=== PATIENT | male | born 1955 ===

== ENCOUNTER 2016-10-26 18:29 | Emergency (ER) | payer OTHER ==
[2016-10-26 18:49] VITALS: BP 179/87; PULSE 86; RESP 15; TEMP 98.4; O2SAT 97
--- NOTE | 2016-10-26 19:02 | C.PDOC ---
History Of Present Illness The patient, a 61 y/o male, presents to the ED for evaluation of a foreign body in right ear for 2 days. Patient notes there is a q-tip stuck in the area and presents to the ED for further evaluation. Patient denies pain and discharge from the area. Time Seen by Provider: 10/26/16 18:59 Chief Complaint (Nursing): ENT Problem History Per: Patient History/Exam Limitations: None Onset/Duration Of Symptoms: Days (2) Current Symptoms Are (Timing): Still Present Quality (Ear): denies: Pain W/Touch Past Medical History Reviewed: Historical Data, Nursing Documentation, Vital Signs Vital Signs: Last Vital Signs Temp 98.4 F 10/26/16 18:48 Pulse 86 10/26/16 18:48 Resp 15 10/26/16 18:48 BP 179/87 H 10/26/16 18:48 Pulse Ox 97 10/26/16 21:42 - Medical History PMH: No Chronic Diseases Surgical History: No Surg Hx Family History: States: Unknown Family Hx - Social History Hx Alcohol Use: No Hx Substance Use: No Review Of Systems Except As Marked, All Systems Reviewed And Found Negative. ENT: Positive for: Other (+FB (Q-tip) in right ear. no discharge ) Physical Exam - Physical Exam Appears: Non-toxic, No Acute Distress Skin: Normal Color, Warm, Dry Head: Atraumatic Eye(s): bilateral: Normal Inspection Ear(s): Left: Normal, Right: Other (+foreign body (q-tip) visualized in canal) Oral Mucosa: Moist Extremity: Normal ROM Neurological/Psych: Oriented x3, Normal Speech Gait: Steady ED Course And Treatment O2 Sat by Pulse Oximetry: 97 (on RA) Pulse Ox Interpretation: Normal Progress Note: Q-tip was removed successfully from right ear with alligator forceps, patient tolerated well (see procedure note). On reassessment, patient is resting comfortably, showing no signs of distress, and is stable for discharge. Patient is advised to follow up with PMD within 1-2 days for further evaluation. Reassessment Condition: Improved Disposition - Disposition Disposition: HOME/ ROUTINE Disposition Time: 19:00 Condition: STABLE Additional Instructions: Follow up with PMD as needed. Return to Ed if feel worse. Instructions: Ear Foreign Body (ED) - Clinical Impression Clinical Impression: Foreign body - PA / TESTING ANALYST / Resident Statement MD/DO has reviewed & agrees with the documentation as recorded. - Scribe Statement The provider has reviewed the documentation as recorded by the Scribe (Gifty Castaneda) All medical record entries made by the Scribe were at my direction and personally dictated by me. I have reviewed the chart and agree that the record accurately reflects my personal performance of the history, physical exam, medical decision making, and the department course for this patient. I have also personally directed, reviewed, and agree with the discharge instructions and disposition. Procedures - FB Removal Ear Right Foreign Body Location: Ear Canal Right Foreign Body Suspected: Other (Q-tip ) TM Intact Pre-Procedure: Yes Foreign Body Removed: Yes Foreign Body Removal Technique: Forceps (alligator ) TM Intact Post Procedure: Yes Patient Tolorated Procedure: Well, No Complications Complications: None
== END 2016-10-26 19:15 | disposition home or self-care (01) ==
LOC: C.ER 18:29
DX: T16.1XXA Foreign body in right ear, initial encounter (principal); X58.XXXA Exposure to other specified factors, initial encounter

== ENCOUNTER 2017-01-15 17:31 | Emergency (ER) | payer OTHER ==
[2017-01-15 17:38] VITALS: PULSE 95; RESP 16; TEMP 98.9; O2SAT 97
--- NOTE | 2017-01-15 18:02 | C.PDOC ---
History Of Present Illness 61 year old male presents to the ED for evaluation of his right ear. Patient states while getting ready for mu-ism this morning he used a Q-tip and some was stuck in his ear. Patient denies pain or other complaints at this time. Time Seen by Provider: 01/15/17 17:44 Chief Complaint (Nursing): ENT Problem History Per: Patient History/Exam Limitations: None Onset/Duration Of Symptoms: Hrs Current Symptoms Are (Timing): Still Present Quality (Ear): Foreign Body (Q-tip stuck in ear) Anticoagulant/Antiplatlet Use?: No Past Medical History Reviewed: Historical Data, Nursing Documentation, Vital Signs Vital Signs: Last Vital Signs Temp 98.9 F 01/15/17 17:35 Pulse 95 H 01/15/17 17:35 Resp 16 01/15/17 17:35 BP 152/90 H 01/15/17 18:03 Pulse Ox 97 01/15/17 18:26 - Medical History PMH: HTN Family History: States: Unknown Family Hx - Social History Hx Alcohol Use: No Hx Substance Use: No Review Of Systems Constitutional: Negative for: Fever, Chills ENT: Positive for: Other (Q-tip in the right ear ). Negative for: Ear Pain Cardiovascular: Negative for: Chest Pain, Palpitations Respiratory: Negative for: Cough, Shortness of Breath Physical Exam - Physical Exam Appears: Non-toxic, No Acute Distress Skin: Warm, Dry Head: Atraumatic Eye(s): bilateral: Normal Inspection, EOMI Ear(s): Left: Normal, Right: Other (Foreign body in the right ear. ) Nose: Normal Oral Mucosa: Moist Neck: Supple Chest: Symmetrical, No Deformity Respiratory: No Accessory Muscle Use Neurological/Psych: Oriented x3 ED Course And Treatment O2 Sat by Pulse Oximetry: 97 (room air ) Progress Note: Foreign body - cotton - was removed with forceps and ear canal was evaluated afterwards. No TM erythema, swelling, or pain to the ear canal. Disposition - Disposition Referrals: Eder Renee MD [Staff Provider] - Disposition: HOME/ ROUTINE Disposition Time: 18:00 Condition: STABLE Additional Instructions: Follow up with primary medical doctor in 1-3 days without fail for further evaluation. Return to the emergency department at any time if symptoms persist or worsen. Instructions: Ear Foreign Body (ED) - Clinical Impression Clinical Impression: Ear foreign body - Scribe Statement The provider has reviewed the documentation as recorded by the Scribe [place] All medical record entries made by the Scribe were at my direction and personally dictated by me. I have reviewed the chart and agree that the record accurately reflects my personal performance of the history, physical exam, medical decision making, and the department course for this patient. I have also personally directed, reviewed, and agree with the discharge instructions and disposition.
[2017-01-15 18:05] VITALS: BP 152/90
== END 2017-01-15 18:05 | disposition home or self-care (01) ==
LOC: C.ER 17:31
DX: T16.1XXA Foreign body in right ear, initial encounter (principal); X58.XXXA Exposure to other specified factors, initial encounter; Y92.009 Unspecified place in unspecified non-institutional (private) residence as the place of occurrence of the external cause

== ENCOUNTER 2017-07-07 16:35 | Emergency (ER) | payer OTHER ==
[2017-07-07 17:08] VITALS: TEMP 98; O2SAT 96
[2017-07-07] MEDS ORDERED: Naproxen 550 mg Tab PO STA (17:31)
[2017-07-07] MEDS ORDERED: Naproxen 550 mg Tab PO ONE (17:38)
--- NOTE | 2017-07-07 17:43 | C.PDOC ---
History Of Present Illness 61 y/o male presents to the ED c/o neck, left ankle, and left knee pain for 1 week. The patient states he was at work on his truck, slipped and fell off the truck and landed onto his left side. He continued to work but the pain persisted which promoted him to come to the ER. The pain is aggravating when he ambulates. The patient denies LOC, change in sensation, nausea, and vomiting. Denies headache , visual changes, chest pain , back pain or abdominal pain . Time Seen by Provider: 07/07/17 17:07 Chief Complaint (Nursing): Back Pain History Per: Patient History/Exam Limitations: no limitations Onset/Duration Of Symptoms: Days Current Symptoms Are (Timing): Still Present Previous Symptoms: Neck Pain, Other (left sided body and left ankle pain ) Additional History Per: Patient Past Medical History Reviewed: Historical Data, Nursing Documentation, Vital Signs Vital Signs: Last Vital Signs Temp 98 F 07/07/17 16:57 Pulse 89 07/07/17 18:23 Resp 18 07/07/17 18:23 BP 155/90 H 07/07/17 18:23 Pulse Ox 96 07/07/17 18:23 - Medical History PMH: HTN Surgical History: No Surg Hx Family History: States: No Known Family Hx - Social History Hx Alcohol Use: No Hx Substance Use: No - Immunization History Hx Tetanus Toxoid Vaccination: No Hx Influenza Vaccination: No Hx Pneumococcal Vaccination: No Review Of Systems Except As Marked, All Systems Reviewed And Found Negative. Constitutional: Negative for: Fever Eyes: Negative for: Vision Change Cardiovascular: Negative for: Chest Pain Respiratory: Negative for: Shortness of Breath Gastrointestinal: Negative for: Nausea, Vomiting Musculoskeletal: Positive for: Neck Pain, Leg Pain (left knee and ankle pain ) Skin: Negative for: Bruising Neurological: Negative for: Change in Speech Physical Exam - Physical Exam Appears: Non-toxic, No Acute Distress Skin: Warm, Dry, Other (healed abrasion to the left forehead ) Head: Normacephalic, No Tenderness, No Swelling Eye(s): bilateral: Normal Inspection, PERRL, EOMI Nose: Normal Oral Mucosa: Moist Neck: Normal ROM, No Midline Cervical Tenderness, Paracervical Tenderness ((+) right sided paracervical tenderness), No Step Off Deformity, Supple Chest: Symmetrical Cardiovascular: Rhythm Regular Respiratory: Normal Breath Sounds, No Rales, No Rhonchi Gastrointestinal/Abdominal: Soft, No Tenderness Back: No CVA Tenderness, No Vertebral Tenderness, No Decreased ROM, No Paraspinal Tenderness Extremity: Normal ROM, Tenderness (medial left knee point tenderness, left ankle swelling ,and tenderness), Capillary Refill (2<sec. ) Neurological/Psych: Oriented x3, Normal Speech, Normal Motor, Normal Sensation Gait: Steady ED Course And Treatment O2 Sat by Pulse Oximetry: 96 (RA) - Other Rad Ankle XR X-Ray: Interpreted by Me, Viewed By Me Interpretation: no fx or dislocation Knee XR X-Ray: Interpreted by Me, Viewed By Me Interpretation: no fx or dislocation cervical XR X-Ray: Interpreted by Me, Viewed By Me Interpretation: no fx or dislocation Progress Note: Dariusz wrap applied tot he knee and air cast applied to the ankle by distribution engineering technologist. Instructed NSAIDs, RICE and follow yup with PMD in 1-2 days. Disposition - Disposition Disposition: HOME/ ROUTINE Disposition Time: 18:18 Condition: STABLE Additional Instructions: Follow up with your primary medical doctor or clinic in 2-5 days for further evaluation. Take medications as prescribed. Return to the emergency department at any time if symptoms persist or worsen. Prescriptions: Naproxen [Naprosyn] 1 tab PO BID PRN #20 tab PRN Reason: Pain Instructions: Contusion in Adults (ED) Forms: [facility] (Tuvaluan) - Clinical Impression Clinical Impression: Contusion of left knee, Left ankle sprain, Cervical strain - PA / DEPUTY SHERIFF CHIEF / Resident Statement MD/DO has examined the patient and agrees with the treatment plan. - Scribe Statement The provider has reviewed the documentation as recorded by the Scribe Ida Lopez
[2017-07-07 18:24] VITALS: BP 155/90; PULSE 89; RESP 18
--- NOTE | 2017-07-08 04:07 | RAD ---
PROCEDURE: Left Ankle Radiographs. HISTORY: trauma COMPARISON: None available. FINDINGS: BONES: Degenerative changes. No acute displaced fracture. Well corticated appearing ossific densities adjacent to the distal medial tibia at the level of the medial malleolus, may be related to remote injury, or degenerative change. Calcaneal enthesophyte. Heel spur. JOINTS: No dislocation. SOFT TISSUES: Mild soft tissue swelling. No evidence of radiopaque foreign body. OTHER FINDINGS: None. IMPRESSION: Degenerative changes. Mild soft tissue swelling. No acute displaced fracture, dislocation, or significant joint effusion identified. If symptoms persist or if there is clinical concern, x-ray follow-up in 7-10 days should be considered.
--- NOTE | 2017-07-08 04:10 | RAD ---
PROCEDURE: Left Knee Radiographs. HISTORY: COMPARISON: None available. FINDINGS: BONES: No acute displaced fracture. Infrapatellar enthesophyte. JOINTS: No dislocation. JOINT EFFUSION: Small to moderate suprapatellar joint effusion. OTHER FINDINGS: None. IMPRESSION: Small to moderate suprapatellar joint effusion. Faint linear lucency noted within the distal tibia best seen on lateral view of unclear significance. Nondisplaced fracture cannot be entirely excluded. Correlate with physical exam to assess for point tenderness. Otherwise, no acute displaced fracture or dislocation identified. If high clinical index of suspicion, CT may be considered for further evaluation. If clinically indicated, x-ray follow-up in 7-10 days should be considered. Degenerative changes. Study has been marked for PA review.
--- NOTE | 2017-07-08 04:13 | RAD ---
PROCEDURE: Cervical Spine Radiographs. HISTORY: Pain. COMPARISON: None available. FINDINGS: BONES: Cervical spine is not visualized beyond C6 on lateral view. Alignment maintained. Multilevel degenerative changes including osteophyte formation. No acute displaced fracture identified. Dens tip is not adequately visualized. DISC SPACES: Unremarkable. SOFT TISSUES: Unremarkable. No prevertebral soft tissue swelling. OTHER FINDINGS: None. IMPRESSION: Limited study. Cervical spine is not visualized beyond C6 on lateral view. The dens tip is not adequately visualized. Degenerative changes. Given limitations of the study correlate clinically. If indicated CT may be considered for further evaluation. Study marked for PA review.
== END 2017-07-07 18:30 | disposition home or self-care (01) ==
LOC: C.ER 16:35
DX: S80.02XA Contusion of left knee, initial encounter (principal); S16.1XXA Strain of muscle, fascia and tendon at neck level, initial encounter; S93.402A Sprain of unspecified ligament of left ankle, initial encounter; W01.0XXA Fall on same level from slipping, tripping and stumbling without subsequent striking against object, initial encounter; Y92.812 Truck as the place of occurrence of the external cause; Y99.0 Civilian activity done for income or pay; I10 Essential (primary) hypertension

== ENCOUNTER 2017-07-10 09:27 | Emergency (ER) | payer OTHER ==
[2017-07-10 09:40] VITALS: RESP 18
--- NOTE | 2017-07-10 09:50 | C.PDOC ---
History Of Present Illness CALLED BACK FOR POSSIBLE ABN XRAY 07/07. S/P FALL ONTO L KNEE, L ANKLE ON 07/07. CO PERSIST PAIN AND SWELLING, WORSE W WT BEAR. ALSO CO HANGER COUGH X SEV DAYS. NO ASTHMA, SMOKING, FEVER. NO SOB, CP EXAM NAD LUNGS EXT LLE +MILD SWELLING L KNEE AROM W PAIN. L ANKLE MILD SWELL NO DEFORM SKIN INTACT NEURO INTACT Time Seen by Provider: 07/10/17 09:49 Chief Complaint (Nursing): Lower Extremity Problem/Injury History Per: Patient History/Exam Limitations: no limitations Onset/Duration Of Symptoms: Days Current Symptoms Are (Timing): Still Present Past Medical History Reviewed: Historical Data, Nursing Documentation, Vital Signs Vital Signs: Last Vital Signs Temp 98.8 F 07/10/17 09:35 Pulse 84 07/10/17 09:35 Resp 18 07/10/17 09:35 BP 194/110 H 07/10/17 09:35 Pulse Ox 99 07/10/17 12:21 - Medical History PMH: HTN Family History: States: No Known Family Hx - Social History Hx Alcohol Use: No Hx Substance Use: No - Immunization History Hx Tetanus Toxoid Vaccination: No Hx Influenza Vaccination: No Hx Pneumococcal Vaccination: No Review Of Systems Except As Marked, All Systems Reviewed And Found Negative. Musculoskeletal: Positive for: Other ((+) left knee and left ankle injury, pain and swelling) Skin: Negative for: Rash Neurological: Negative for: Weakness, Numbness Physical Exam - Physical Exam Appears: Non-toxic, No Acute Distress Skin: Warm, Dry, No Rash Head: Atraumatic, Normacephalic Oral Mucosa: Moist Respiratory: Normal Breath Sounds, No Rales, No Rhonchi, No Stridor, No Wheezing Extremity: No Calf Tenderness, Other (LLE - mild swelling to the left knee, AROM with pain. Left ankle, mild swelling, no deformity) Neurological/Psych: Oriented x3, Normal Speech, Normal Sensation, Normal Reflexes ED Course And Treatment O2 Sat by Pulse Oximetry: 99 (RA) Pulse Ox Interpretation: Normal - CT Scan/US CT - Lower Left Leg Other Rad Studies (CT/US): Read By Radiologist, Radiology Report Reviewed CT/US Interpretation: PROCEDURE: CT left lower extremity. HISTORY: TRAUMA / LT KNEE AND LT ANKLE ABNORMAL XRAY 07/07. COMPARISON: Not available. TECHNIQUE : 2.5 mm contiguous axial sections were acquired through the left lower extremity from the distal femur through the ankle. FINDINGS: There is no evidence of fracture. There is no lytic or blastic osseous lesion. In the is preserved. 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 The tibiotalar articulation is intact. The talar dome is smooth. There is no significant soft tissue swelling appreciated. IMPRESSION: No evidence of fracture or dislocation. Reevaluation Time: 12:19 Reassessment Condition: Unchanged (NEG CT FINDINGS. ADVISED CONT CURRENT PAIN MEDS, ICE, ELEVATION, FU PMD) Medical Decision Making Medical Decision Making: PLAN: * CT - Lower Left Leg * Tessalon Perles PO Disposition Counseled Patient/Family Regarding: Studies Performed, Diagnosis, Need For Followup - Disposition Referrals: YOUR,PMD [Other] Luis F Disla III, MD [Staff Provider] - Disposition: HOME/ ROUTINE Disposition Time: 12:19 Condition: GOOD Additional Instructions: YOUR CT SCAN OF YOUR KNEE AND ANKLE ARE NORMAL, NO FRACTURE. FOLLOW UP WITH YOUR PMD AND/OR ORTHOPEDICS NEEDED Prescriptions: Acetaminophen with Codeine [Tylenol with Codeine No. 3 300 mg-30 mg] 1 tab PO Q6 PRN #12 tab PRN Reason: Pain, Moderate (4-7) Instructions: Ankle Sprain (ED), Knee Sprain (ED) Forms: [employer] [facility] (Botswanan) - Clinical Impression Clinical Impression: Left ankle sprain, Ankle sprain - Scribe Statement The provider has reviewed the documentation as recorded by the Madhuriibe Krystle Rodriguez Provider Attestation: All medical record entries made by the Scribe were at my direction and personally dictated by me. I have reviewed the chart and agree that the record accurately reflects my personal performance of the history, physical exam, medical decision making, and the department course for this patient. I have also personally directed, reviewed, and agree with the discharge instructions and disposition.
--- NOTE | 2017-07-10 12:15 | CT ---
PROCEDURE: CT left lower extremity HISTORY: TRAUMA / LT KNEE AND LT ANKLE ABNORMAL XRAY 07/07 COMPARISON: Not available TECHNIQUE: 2.5 mm contiguous axial sections were acquired through the left lower extremity from the distal femur through the ankle. FINDINGS: There is no evidence of fracture. There is no lytic or blastic osseous lesion. In the is preserved. 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 The tibiotalar articulation is intact. The talar dome is smooth. There is no significant soft tissue swelling appreciated. IMPRESSION: No evidence of fracture or dislocation.
[2017-07-10 12:36] VITALS: BP 198/93; PULSE 86; TEMP 98.4; O2SAT 98
== END 2017-07-10 12:38 | disposition home or self-care (01) ==
LOC: C.ER 09:27
DX: S93.402A Sprain of unspecified ligament of left ankle, initial encounter (principal); X58.XXXA Exposure to other specified factors, initial encounter